=== PATIENT | female | born 1955 | race Caucasian/White ===

== ENCOUNTER 2018-03-10 21:08 | Emergency (ER) | payer BC, MEDICAID, OTHER ==
[2018-03-10] MEDS ORDERED: HYDROmorphone 1 MG/ML Syringe IM ONE (21:44)
[2018-03-10 21:46] VITALS: BP 133/76
[2018-03-10] MEDS ORDERED: Propofol 200 MG/20 ML SDV IVPUSH ONE (22:05)
[2018-03-10] MEDS ORDERED: Sodium Chloride 0.9% 1,000 ML IV SCH (22:15)
--- NOTE | 2018-03-10 22:49 | EDM.PDOC ---
ED HPI GENERAL MEDICAL PROBLEM - General Chief Complaint: Upper Extremity Injury/Pain Stated Complaint: RIGHT SHOULDER ARM PAIN Time Seen by Provider: 03/10/18 21:50 Source of Information: Reports: Patient, Family History Limitations: Reports: No Limitations - History of Present Illness INITIAL COMMENTS - FREE TEXT/NARRATIVE: 62-year-old female who fell tonight injuring her right shoulder. She cannot move her shoulder and is having significant pain. No other injury. Onset: Sudden Duration: Hour(s): (Within the past 2 hours) Location: Reports: Upper Extremity, Right Severity: Severe Associated Symptoms: Reports: No Other Symptoms right armpit Pain Score (Numeric/FACES): 6 - Related Data Allergies Allergy/AdvReac Type Severity Reaction Status Date / Time bee pollen Allergy Swelling Verified 03/10/18 21:50 iodine Allergy Hives Verified 09/19/15 10:35 Penicillins Allergy Swelling Verified 09/19/15 10:35 Home Meds: Home Meds Atenolol 100 mg PO DAILY 09/19/15 [History] Diltiazem [Cardizem CD] 360 mg PO DAILY 09/19/15 [History] Hydrochlorothiazide 50 mg PO DAILY 09/19/15 [History] Ibuprofen 600 mg PO DAILY 03/10/18 [History] Past Medical History Cardiovascular History: Reports: Hypertension - Past Surgical History HEENT Surgical History: Reports: Tonsillectomy Female Surgical History: Reports: Hysterectomy, Tubal Ligation Social & Family History - Tobacco Use Smoking Status *Q: Never Smoker - Caffeine Use Caffeine Use: Reports: Coffee, Soda - Alcohol Use Days Per Week of Alcohol Use: 2 Number of Drinks Per Day: 6 Total Drinks Per Week: 12 - Recreational Drug Use Recreational Drug Use: No Review of Systems - Review of Systems Review Of Systems: See Below Constitutional: Denies: Fever Respiratory: Reports: No Symptoms GI/Abdominal: Denies: Nausea, Vomiting Skin: Reports: No Symptoms Neurological: Reports: Other (Right hand is numb.) ED EXAM, GENERAL - Physical Exam Exam: See Below Exam Limited By: No Limitations General Appearance: Alert, Anxious, Moderate Distress Respiratory/Chest: No Respiratory Distress Extremities: Other (Right clavicle is intact and nontender area she has a defect under the distal clavicle and significant tenderness to palpation over the proximal right humerus. Any passive range of motion of the right arm causes significant pain.) Course - Vital Signs Last Recorded V/S: Last Vital Signs Temp 96.3 F 03/10/18 22:02 Pulse 64 03/10/18 22:02 Resp 20 03/10/18 22:02 BP 133/76 03/10/18 22:02 Pulse Ox 93 L 03/10/18 22:02 - Orders/Labs/Meds Orders: Active Orders 24 hr Category Date Time Status Shoulder 1V Rt [CR] Stat Exams 03/10/18 21:44 Taken Shoulder 1V Rt [CR] Stat Exams 03/10/18 22:29 Taken DME for Discharge [COMM] Stat Oth 03/10/18 22:30 Ordered Meds: Medications Discontinued Medications Generic Name Dose Route Start Last Admin Trade Name Freq PRN Reason Stop Dose Admin Hydromorphone HCl 1 mg 03/10/18 21:44 03/10/18 21:50 Dilaudid IM 03/10/18 21:45 1 mg ONETIME ONE Administration Sodium Chloride 1,000 mls @ 500 mls/hr 03/10/18 22:15 03/10/18 22:15 Normal Saline IV 500 mls/hr ASDIRECTED GURMEET Administration Propofol 100 mg 03/10/18 22:05 03/10/18 22:27 Diprivan 20 Ml IVPUSH 03/10/18 22:06 100 mg ONETIME ONE Administration - Re-Assessments/Exams Free Text/Narrative Re-Assessment/Exam: 03/10/18 22:47 patient was initially given 1 mg of IM Dilaudid. An x-ray of the right shoulder revealed an anterior dislocation of the humerus. An IV was started, the patient was given 100 mg of IV propofol and with countertraction the shoulder is reduced without difficulty. Postreduction x-ray confirmed proper anatomic position. She had much less pain. She'll be placed in a sling and asked to follow-up with orthopedics next week. Departure - Departure Time of Disposition: 23:06 Disposition: Home, Self-Care 01 Condition: Good Clinical Impression: Dislocation of right shoulder joint Qualifiers: Encounter type: initial encounter Qualified Code(s): S43.004A - Unspecified dislocation of right shoulder joint, initial encounter - Discharge Information Instructions: Shoulder Dislocation Referrals: PCP,None [Primary Care Provider] - Forms: ED Department Discharge Care Plan Goals: Keep arm in sling through the weekend, and recheck on Tuesday with [place] of orthopedics. - My Orders Last 24 Hours: My Active Orders 03/10/18 21:44 Shoulder 1V Rt [CR] Stat 03/10/18 22:29 Shoulder 1V Rt [CR] Stat 03/10/18 22:30 DME for Discharge [COMM] Stat - Assessment/Plan Last 24 Hours: My Active Orders 03/10/18 21:44 Shoulder 1V Rt [CR] Stat 03/10/18 22:29 Shoulder 1V Rt [CR] Stat 03/10/18 22:30 DME for Discharge [COMM] Stat
--- NOTE | 2018-03-13 08:29 | CR ---
Shoulder 1V Rt CLINICAL HISTORY: Pain, fall FINDINGS: There is a inferior dislocation of the humeral head which is likely an anterior dislocation . No fracture line is seen. Study is limited due to portable technique and patient's large size. Impression: Limited study Probable anterior dislocation of the shoulder. Follow-up images are recommended to better evaluate th e humerus and scapula
--- NOTE | 2018-03-13 08:30 | CR ---
Shoulder 1V Rt CLINICAL HISTORY: Post reduction FINDINGS: Study is limited due to portable technique and patient's large size. Previous anterior dislocation has been reduced. There is minimal flattening of the superior lateral h umeral head. This may represent a small Hill-Sachs deformity. Impression: Status post reduction of shoulder dislocation
== END 2018-03-10 23:06 | disposition home or self-care (01) ==
LOC: JP.ED 21:08
DX: S43.014A Anterior dislocation of right humerus, initial encounter (principal); I10 Essential (primary) hypertension; Z91.030 Bee allergy status; Z91.09 Other allergy status, other than to drugs and biological substances; Z88.0 Allergy status to penicillin; Z79.899 Other long term (current) drug therapy; W19.XXXA Unspecified fall, initial encounter
CPT/HCPCS: 23650; 73020; 96361; 96372; 96374; 99284; J1170; J2704; J7030

== ENCOUNTER 2020-03-10 07:10 | Day surgery (SDC) | payer MEDICARE, BC ==
[2020-03-10] MEDS ORDERED: ceFAZolin 2 GM in Premix Bag 1 BAG IV ONE (07:30)
[2020-03-10] MEDS ORDERED: Lactated Ringers 1,000 ML IV SCH (07:30)
[2020-03-10] MEDS ORDERED: fentaNYL 100 MCG/2 ML SDV ONE (07:39)
[2020-03-10] MEDS ORDERED: Propofol 200 MG/20 ML SDV ONE ×2 (07:39→09:49)
[2020-03-10] MEDS ORDERED: Midazolam 1 MG/ML 2 ML SDV ONE ×2 (07:39→10:02)
[2020-03-10] MEDS: Nozin Nasal Sanitizer NASBOTH SCH ×2 (08:10→21:33)
[2020-03-10] MEDS ORDERED: Lactated Ringers 1,000 ML ONE (09:13)
[2020-03-10] MEDS ORDERED: Magnesium Hydroxide 400 MG/5 ML Susp 30 ML Cup PO PRN (10:27)
[2020-03-10] MEDS ORDERED: Morphine 2 MG/ML SYRINGE IVPUSH PRN (10:27)
[2020-03-10] MEDS ORDERED: Acetaminophen 325 MG Tab PO PRN (10:27)
[2020-03-10] MEDS ORDERED: Acetaminophen/HYDROcodone 325-5 MG Tab PO PRN (10:27)
[2020-03-10] MEDS ORDERED: Acetaminophen/oxyCODONE 325-5 MG Tab PO PRN (10:27)
[2020-03-10] MEDS: Sodium Chloride 0.9% 1,000 ML IV SCH ×2 (11:32→19:43)
[2020-03-10] MEDS: Ketorolac 30 MG/ML SDV IVPUSH SCH ×2 (14:01→21:31)
--- NOTE | 2020-03-10 14:12 | CR ---
Knee 1V or 2V Rt CLINICAL HISTORY: Total knee arthroplasty FINDINGS: Patient is status post total knee arthroplasty. Components appear well seated. There is intra-articular and subcutaneous air. Impression: Status post recent total knee arthroplasty
[2020-03-10] MEDS: ceFAZolin 1 GM in Premix Bag 1 BAG IV SCH (15:13)
[2020-03-10] MEDS ORDERED: Ondansetron 4 MG/2 ML SDV IVPUSH PRN (17:16)
[2020-03-10] MEDS: Docusate Sodium 100 MG Cap PO SCH (21:33)
[2020-03-11] MEDS: ceFAZolin 1 GM in Premix Bag 1 BAG IV SCH ×2 (00:07→08:15)
[2020-03-11] MEDS: Sodium Chloride 0.9% 1,000 ML IV SCH (03:37)
[2020-03-11] MEDS: Ketorolac 30 MG/ML SDV IVPUSH SCH ×2 (05:57→13:03)
[2020-03-11 07:41] VITALS: BP 146/74
[2020-03-11] MEDS: Docusate Sodium 100 MG Cap PO SCH (08:43)
[2020-03-11 08:44] VITALS: PULSE 80
[2020-03-11] MEDS: Nozin Nasal Sanitizer NASBOTH SCH (08:44)
[2020-03-11] MEDS ORDERED: Atenolol 25 MG Tab PO SCH (09:00)
[2020-03-11] MEDS ORDERED: Diltiazem 180 MG Cap.CD PO SCH (09:00)
[2020-03-11] MEDS ORDERED: Non-Formulary Medication 1 Each (Hydrochlorothiazide [Hydrochlorothiazide] 50 MG) PO SCH (09:00)
[2020-03-11] MEDS ORDERED: Hydrochlorothiazide 25 MG Tab PO SCH (09:00)
[2020-03-11] MEDS ORDERED: Non-Formulary Medication 1 Each (Atenolol [Atenolol] 100 MG) PO SCH (09:00)
[2020-03-11] MEDS ORDERED: Aspirin 325 MG Tab.EC PO SCH (11:00)
--- NOTE | 2020-03-12 22:34 | OR ---
DATE OF PROCEDURE: 03/10/2020 SURGEON: Herson Stanley MD PREOPERATIVE DIAGNOSIS: Severe osteoarthritis, right knee, with varus collapse. POSTOPERATIVE DIAGNOSIS: Severe osteoarthritis, right knee, with varus collapse. PROCEDURE: Right total knee arthroplasty using Camelia Persona components with a size 5 femur, size E tibia, 29 mm patella, and 10 mm polyethylene. ANESTHESIA: Spinal with sedation. INDICATIONS: Esther is a 64-year-old female with a history of progressive bilateral knee pain and stiffness. She has progressive varus deformity of both knees with end- stage osteoarthritis. Now presents for right total knee arthroplasty. Risks, benefits, and potential complications were discussed. DESCRIPTION OF PROCEDURE: After adequate anesthesia was obtained, the patient was placed supine with a tourniquet above the right upper thigh. Right leg was prepped and draped in sterile fashion. Leg was exsanguinated, tourniquet inflated to 300 mmHg pressure. Anterior incision was made, carried down through the subcutaneous tissues, and a medial parapatellar arthrotomy was performed. Moderate effusion was present. Medial release was performed and the anterior horn of the meniscus was excised along with a portion of the fat pad. Patella was partially everted, held with clamps, and the posterior aspect of the patella was resected with an oscillating saw. Severe degenerative changes were present in the medial compartment. Intramedullary canal was drilled. Guide was placed and the distal femoral cut was then made. Extramedullary tibial jig was placed, aligned, and secured. Proximal tibia was then resected with an oscillating saw. Remaining meniscus was excised. Knee was flexed and the distal femur was sized to a #5 component. A 5 cutting jig was secured and remaining femoral cuts were then made including an intercondylar notch cut for a posterior cruciate sacrificing component. Tibia was sized to an E tibial tray. This was initially fairly tight medially. Additional medial release was performed. A 10 mm spacer was placed with good balance and full extension. A trial tibial tray was secured, drilled , and punched, completing preparation of the tibia. Patella was measured at 29, pegs were drilled, and a trial button was placed, which tracked well without lateral release. Trial components were removed. The knee was thoroughly irrigated with pulse lavage. The surfaces were dried and components were cemented in place. Excess cement was removed and the knee was held in full extension with a 10 mm trial insert. Once cement had cured, the knee was taken through range of motion. The trial 10 mm polyethylene was removed and the final polyethylene was secured in place. The knee had full extension, very good flexion, and patella tracked well with good balance in flexion and extension. Knee was irrigated with pulse lavage. The knee was closed with #1 Ethibond in interrupted fashion. Skin was closed with 2-0 Vicryl and a running 3-0 Monocryl. Steri-Strips were applied. Light compressive dressing was then placed. The patient tolerated the procedure very well, was taken from the operating room in stable condition. Herson Stanley MD /[id number] DOT
--- NOTE | 2020-06-04 13:42 | PCM.DCSUM1 ---
Discharge Summary - Hospital Course Diagnosis: Stroke: No Modified [place] Scale: No Symptoms at All Modified [place] Scale Score: 0 - Discharge Data Discharge Date: 03/11/20 Discharge Disposition: Home, W Home Health Agency 06 Condition: Good - Referral to Home Health Date of Face to Face Encounter: 03/11/20 Reason for Homebound Status: S/P right total knee unable to drive Primary Care Physician: Rod Allen NP Skilled Need: Physical Therapy - ROM and strengthening - Patient Summary/Data Operative Procedure(s) Performed: right total knee Consults: Consultations 03/10/20 10:27 Consult to Case Management/Press Brake Operator [CONS] Routine Comment: Physician Instructions: Service(s) to be Consulted: Case Management Reason for Consult: Plan for Discharge PT Evaluation and Treatment [CONS] Routine Please Evaluate and Treat. PT Reason for Consult: Post op Ortho Surgery This query below is only for informational purposes and is not editable. PT Evaluation and Treatment [CONS] Routine Please Evaluate and Treat. PT Reason for Consult: Post op Ortho Surgery Knee Pending Discharge: Yes, 1- 2 days Special Instructions: Schedule first outpatient PT appointment in 3-5 day post discharge. This query below is only for informational purposes and is not editable. 03/10/20 10:34 Consult to Occupational Therapy [OT Evaluation and Treatment] [CONS] Routine Please Evaluate and Treat. OT Reason for Consult: ADL's Pending Discharge: Yes Discharge Disposition: Home w Home Health Special Instructions: ADLs and adaptive devices This query below is only for informational purposes and is not editable. Admission Diagnosis/Problem: Osteoarthritis of both knees Hospital Course: Admitted for right TKA which she tolerated very well. Was seen by PT POD# 1 and was able to achieve independence with transitions and ambulation by the afternoon and wanted to go home. Dressing was changed prior to discharge. Plan outpatient PT. Follow up in 2 weeks. - Patient Instructions Diet: Usual Diet as Tolerated Activity: Apply Ice, As Tolerated, Full Weight Bearing Driving: Do Not Drive Showering/Bathing: Shower in AM Notify Provider of: Fever, Increased Pain, Swelling and Redness, Drainage, Nausea and/or Vomiting - Discharge Plan *PRESCRIPTION DRUG MONITORING PROGRAM REVIEWED*: No *COPY OF PRESCRIPTION DRUG MONITORING REPORT IN PATIENT [place]IE[place]: No Home Medications: Home Meds Diltiazem [Cardizem CD] 360 mg PO DAILY 09/19/15 [History] atenoloL [Atenolol] 100 mg PO DAILY 09/19/15 [History] hydroCHLOROthiazide [Hydrochlorothiazide] 50 mg PO DAILY 09/19/15 [History] Ibuprofen 600 mg PO DAILY PRN 03/10/18 [History] Loratadine [Claritin] 10 mg PO DAILY 03/10/20 [History] Multivitamin [Daily Multiple Vitamin] 1 tab PO DAILY 03/10/20 [History] Oxygen Therapy Mode: Room Air Referrals: Herson Stanley MD [Physician] - 03/25/20 1:30 pm (Please arrive 15 minutes early to register for your appointment.) - Discharge Summary/Plan Comment DC Time >30 min.: No - General Info Functional Status: Reports: Pain Controlled, Tolerating Diet, Ambulating, Urinating - Review of Systems General: Reports: No Symptoms HEENT: Reports: No Symptoms Pulmonary: Reports: No Symptoms Cardiovascular: Reports: No Symptoms Gastrointestinal: Reports: No Symptoms Genitourinary: Reports: No Symptoms Musculoskeletal: Reports: Joint Swelling Skin: Reports: No Symptoms Neurological: Reports: No Symptoms Psychiatric: Reports: No Symptoms - Patient Data Vitals - Most Recent: Last Vital Signs Temp 37.4 C 03/11/20 07:38 Pulse 80 03/11/20 08:43 Resp 16 03/11/20 07:38 BP 146/74 H 03/11/20 08:43 Pulse Ox 95 03/11/20 07:38 Weight - Most Recent: 93.621 kg Med Orders - Current: Current Medications Discontinued Medications Acetaminophen (Tylenol) 650 mg PO Q4H PRN PRN Reason: Pain/Fever Hydrocodone Bitart/Acetaminophen (Jay 325-5 Mg) 2 tab PO Q3H PRN PRN Reason: Pain (mild 1-3) Aspirin (Ecotrin) 325 mg PO BID [facility] Last Admin: 03/11/20 13:03 Dose: 325 mg Documented by: Atenolol (Tenormin) 100 mg PO DAILY [facility] Last Admin: 03/11/20 08:43 Dose: 100 mg Documented by: Bandage/Support Products ( [employer] Operations Center Technician) 1 applic NASBOTH BID [facility] Last Admin: 03/11/20 08:44 Dose: 1 applic Documented by: Diltiazem HCl (Cardizem Cd) 360 mg PO DAILY [facility] Last Admin: 03/11/20 08:43 Dose: 360 mg Documented by: Docusate Sodium (Colace) 100 mg PO BID [facility] Last Admin: 03/11/20 08:43 Dose: 100 mg Documented by: Fentanyl (Sublimaze) Confirm Administered Dose 100 mcg .ROUTE .STK-MED ONE Stop: 03/10/20 07:40 Hydrochlorothiazide (Hydrochlorothiazide) 50 mg PO DAILY [facility] Last Admin: 03/11/20 08:43 Dose: 50 mg Documented by: Cefazolin Sodium/Dextrose 2 gm (/ Premix) 50 mls @ 100 mls/hr IV ONETIME ONE Stop: 03/10/20 07:59 Last Admin: 03/10/20 08:40 Dose: 100 mls/hr Documented by: Lactated Ringer's (Ringers, Lactated) 1,000 mls @ 75 mls/hr IV ASDIRECTED [facility] Last Admin: 03/10/20 08:10 Dose: 75 mls/hr Documented by: Lactated Ringer's (Ringers, Lactated) Confirm Administered Dose 1,000 mls @ as directed .ROUTE .STK-MED ONE Stop: 03/10/20 09:14 Cefazolin Sodium/Dextrose 1 gm (/ Premix) 50 mls @ 100 mls/hr IV Q8H [facility] Stop: 03/11/20 08:29 Last Admin: 03/11/20 08:15 Dose: 100 mls/hr Documented by: Sodium Chloride (Normal Saline) 1,000 mls @ 125 mls/hr IV ASDIRECTED [facility] Last Admin: 03/11/20 03:37 Dose: 125 mls/hr Documented by: Ketorolac Tromethamine (Toradol) 30 mg IVPUSH Q8H [facility] Stop: 03/12/20 06:01 Last Admin: 03/11/20 13:03 Dose: 30 mg Documented by: Magnesium Hydroxide (Milk Of Magnesia) 30 ml PO BID PRN PRN Reason: Constipation Midazolam HCl (Versed 1 Mg/Ml) Confirm Administered Dose 2 mg .ROUTE .STK-MED ONE Stop: 03/10/20 07:40 Midazolam HCl (Versed 1 Mg/Ml) Confirm Administered Dose 2 mg .ROUTE .STK-MED ONE Stop: 03/10/20 10:03 Morphine Sulfate (Morphine) 2 mg IVPUSH Q1H PRN PRN Reason: Breakthrough Pain Last Admin: 03/10/20 11:22 Dose: 2 mg Documented by: Ondansetron HCl (Zofran) 4 mg IVPUSH Q4H PRN PRN Reason: Nausea/Vomiting Oxycodone/Acetaminophen (Percocet 325-5 Mg) 2 tab PO Q4H PRN PRN Reason: Pain Last Admin: 03/10/20 11:56 Dose: 2 tab Documented by: Propofol (Diprivan 20 Ml) Confirm Administered Dose 200 mg .ROUTE .STK-MED ONE Stop: 03/10/20 07:40 Propofol (Diprivan 20 Ml) Confirm Administered Dose 200 mg .ROUTE .STK-MED ONE Stop: 03/10/20 09:50 - Exam General: Reports: Alert, Oriented HEENT: Reports: Pupils Equal, Pupils Reactive, EOMI, Mucous Membr. Moist/[place] Neck: Reports: Supple Lungs: Reports: Clear to Auscultation, Normal Respiratory Effort Cardiovascular: Reports: Regular Rate, Regular Rhythm GI/Abdominal Exam: Normal Bowel Sounds, Soft, Non-Tender, No Distention (Female) Exam: Deferred Rectal (Female) Exam: Deferred Back Exam: Reports: Normal Inspection Extremities: Joint Swelling, Limited Range of Motion Skin: Reports: Warm, Dry Wound/Incisions: Reports: Healing Well, No Drainage Neurological: Reports: No New Focal Deficit Psy/Mental Status: Reports: Alert, Normal Affect, Normal Mood
== END 2020-03-11 15:13 | disposition home health service (06) ==
LOC: JP.SDS 07:10 → JP.MS 10:27 → JP.SDS 03-11 15:13
PROVIDERS: ATTEND Specialist
DX: M17.0 Bilateral primary osteoarthritis of knee (principal); M21.161 Varus deformity, not elsewhere classified, right knee; I10 Essential (primary) hypertension; E66.9 Obesity, unspecified; E78.5 Hyperlipidemia, unspecified; Z79.899 Other long term (current) drug therapy; Z88.0 Allergy status to penicillin; Z91.030 Bee allergy status; Z91.041 Radiographic dye allergy status; Z68.41 Body mass index [BMI] 40.0-44.9, adult
CPT/HCPCS: 27447; 36415; 73560; 85027; 86850; 86900; 86901; 97110; 97161; 97530; A9270; C1713; J0690; J1885; J2250; J2270; J2704; J3010; J7030; J7120; C1776

== ENCOUNTER 2020-07-14 05:40 | Day surgery (SDC) | payer MEDICARE, BC ==
[2020-07-14] MEDS ORDERED: Lactated Ringers 1,000 ML IV SCH (06:00)
[2020-07-14] MEDS: Nozin Nasal Sanitizer NASBOTH SCH ×3 (06:25→21:50)
[2020-07-14] MEDS ORDERED: Povidone-Iodine 10% Soln 118.25 ML Bottle ONE (06:29)
[2020-07-14] MEDS ORDERED: fentaNYL 100 MCG/2 ML SDV ONE (07:29)
[2020-07-14] MEDS ORDERED: Propofol 200 MG/20 ML SDV ONE ×2 (07:29→08:33)
[2020-07-14] MEDS ORDERED: Midazolam 1 MG/ML 2 ML SDV ONE ×2 (07:29→08:06)
[2020-07-14] MEDS ORDERED: ceFAZolin 2 GM in Premix Bag 1 BAG IV ONE (07:45)
[2020-07-14] MEDS ORDERED: Lactated Ringers 1,000 ML ONE (08:26)
[2020-07-14] MEDS ORDERED: Magnesium Hydroxide 400 MG/5 ML Susp 30 ML Cup PO PRN (09:23)
[2020-07-14] MEDS ORDERED: Morphine 2 MG/ML SYRINGE IVPUSH PRN (09:23)
[2020-07-14] MEDS ORDERED: Acetaminophen/HYDROcodone 325-5 MG Tab PO PRN (09:23)
[2020-07-14] MEDS ORDERED: Acetaminophen/oxyCODONE 325-5 MG Tab PO PRN (09:23)
[2020-07-14] MEDS ORDERED: Ketorolac 30 MG/ML SDV IVPUSH SCH (09:30)
[2020-07-14] MEDS ORDERED: ceFAZolin 1 GM in Sodium Chloride 0.9% 50 ML IV SCH ×2 (09:30→11:15)
[2020-07-14] MEDS ORDERED: Sodium Chloride 0.9% 1,000 ML IV SCH (09:30)
[2020-07-14] MEDS: Ketorolac 30 MG/ML SDV IVPUSH SCH ×2 (12:08→19:53)
--- NOTE | 2020-07-14 12:31 | CR ---
Knee 1V or 2V Lt CLINICAL HISTORY: Status post total knee arthroplasty FINDINGS: Patient is status post left knee arthroplasty. Components appear well seated. There is intra-articular subcutaneous air Impression: Status post recent left knee arthroplasty
[2020-07-14] MEDS: ceFAZolin 1 GM in Premix Bag 1 BAG IV SCH ×2 (16:27→22:44)
[2020-07-14] MEDS ORDERED: Docusate Sodium 100 MG Cap PO SCH (21:00)
[2020-07-14] MEDS: Docusate Sodium 100 MG Cap PO SCH (21:50)
[2020-07-15] MEDS: Ketorolac 30 MG/ML SDV IVPUSH SCH ×2 (04:15→11:20)
[2020-07-15 07:31] VITALS: BP 127/66; PULSE 78
[2020-07-15] MEDS: ceFAZolin 1 GM in Premix Bag 1 BAG IV SCH (07:38)
[2020-07-15] MEDS ORDERED: Non-Formulary Medication 1 Each (Atenolol [Atenolol] 100 MG) PO SCH ×2 (09:00)
[2020-07-15] MEDS ORDERED: Diltiazem 180 MG Cap.CD PO SCH ×2 (09:00)
[2020-07-15] MEDS ORDERED: Loratadine 10 MG Tab PO SCH ×2 (09:00)
[2020-07-15] MEDS ORDERED: Hydrochlorothiazide 25 MG Tab PO SCH (09:00)
[2020-07-15] MEDS ORDERED: Non-Formulary Medication 1 Each (Hydrochlorothiazide [Hydrochlorothiazide] 50 MG) PO SCH ×2 (09:00)
[2020-07-15] MEDS ORDERED: Atenolol 25 MG Tab PO SCH (09:00)
[2020-07-15] MEDS: Docusate Sodium 100 MG Cap PO SCH (09:15)
[2020-07-15] MEDS: Nozin Nasal Sanitizer NASBOTH SCH (09:17)
--- NOTE | 2020-07-23 13:28 | OR ---
DATE OF PROCEDURE: 07/14/2020 SURGEON: Herson Stanley MD PREOPERATIVE DIAGNOSIS: Osteoarthritis, left knee. POSTOPERATIVE DIAGNOSIS: Osteoarthritis, left knee. PROCEDURE: Left total knee arthroplasty using Camelia Persona components with a size 5 femur, D tibia, 10 mm polyethylene, and 29 mm patella. ANESTHESIA: Spinal with sedation. INDICATIONS: Esther is a very pleasant 64-year-old female with a history of bilateral knee osteoarthritis. She recently underwent right total knee arthroplasty and done quite well with that. She is now having persistent left knee pain and presents for left total knee. Risks, benefits, potential complications of the procedure were discussed. PROCEDURE IN DETAIL: After adequate anesthesia was obtained, patient was placed supine with a tourniquet about the left upper thigh. Left leg was prepped and draped in a sterile fashion. Leg was exsanguinated and tourniquet inflated to 300 mmHg pressure. An anterior incision was made, centered over the patella and carried down through the subcutaneous tissues. Medial parapatellar arthrotomy was performed. The patella was partially everted and the posterior aspect of the patella was resected with an oscillating saw. A portion of the fat pad was excised. The knee was flexed and the intramedullary canal of the femur was reamed. Intramedullary guide was placed and the distal femur was then cut. Attention was turned to the tibia where the extramedullary tibial guide was placed. This was aligned and secured to the tibia and the proximal tibia was resected. Resected bone was removed along with the remnants of the medial and lateral menisci. Attention was then returned to the femur. This was sized to a #5 component. The cutting jig was placed on the distal femur and remaining cuts were made. Trial was placed and the intercondylar notch was cut for a posterior cruciate-sacrificing component. Tibia was then sized to a D component. D template was secured. Metaphysis was reamed and fins were cut. Trial reduction was then made with a 10 mm implant, which provided excellent balance in flexion and extension with full extension. The patella was resurfaced with a 29 mm patellar button which tracked well with no lateral release. Trial components were removed. The knee was thoroughly irrigated with the pulse lavage. Bone surfaces were dried and components were cemented in place. Excess cement was removed and the knee was held in full extension with the trial insert as cement cured. The knee was taken through range of motion and the 10 mm trial again provided full extension and good balance in flexion and extension. The trials were removed. Knee was irrigated and the final polyethylene was placed. Knee was irrigated again. This was followed by a dilute Betadine wash, which was left in place for 2-1/2 minutes and then irrigated. Arthrotomy was closed with #2 Ethibond in interrupted fashion. Skin was closed with 2-0 Vicryl and a running 3-0 Monocryl. Steri-Strips were applied. Light compressive dressing was then placed. The patient tolerated the procedure well and there were no complications, taken from the operating room in stable condition. Herson Stanley MD /[id number] DOT
== END 2020-07-15 14:40 | disposition home or self-care (01) ==
LOC: JP.SDS 05:40 → JP.MS 05:40 → UNDOADMIN 05:40 → EDSTATUS 10:00 → JP.MS 10:40 → JP.SDS 07-15 14:40 → UNDODISIN 07-15 14:40
PROVIDERS: ATTEND Specialist
DX: M17.0 Bilateral primary osteoarthritis of knee (principal); I10 Essential (primary) hypertension; E78.5 Hyperlipidemia, unspecified; R73.9 Hyperglycemia, unspecified; E66.01 Morbid (severe) obesity due to excess calories; Z79.899 Other long term (current) drug therapy; Z88.0 Allergy status to penicillin; Z91.030 Bee allergy status; Z91.041 Radiographic dye allergy status; Z68.41 Body mass index [BMI] 40.0-44.9, adult
CPT/HCPCS: 27447; 36415; 73560; 86850; 86900; 86901; 97110; 97162; 97530; 97535; A9270; C1713; C1776; J0690; J1885; J2250; J2270; J2704; J3010; J7120